=== PATIENT | female | born 1980 | race Native Hawaiian/Other Pacific Islander ===

== ENCOUNTER 2016-09-27 12:30 | Emergency (ER) | payer BC, MEDICAID ==
[2016-09-27] MEDS ORDERED: DEXAMETHASONE 10 MG/ML VIAL PO STA (15:48)
[2016-09-27] MEDS ORDERED: CHERRY SYRUP 10 ML UDC PO ONE (15:50)
[2016-09-27] MEDS ORDERED: DEXAMETHASONE 10 MG/ML VIAL ONE (15:51)
== END 2016-09-27 17:22 | disposition home or self-care (01) ==
DX: S29.012A Strain of muscle and tendon of back wall of thorax, initial encounter (principal); X50.9XXA Other and unspecified overexertion or strenuous movements or postures, initial encounter; Y99.0 Civilian activity done for income or pay; I10 Essential (primary) hypertension; K21.9 Gastro-esophageal reflux disease without esophagitis
CPT/HCPCS: 71020; 93005; 93010; 99283; 99284; A9270

== ENCOUNTER 2016-10-21 08:18 | Outpatient (CLI) | payer BC, MEDICAID | END 2016-10-21 08:19 | disposition home or self-care (01) | DX: I10 Essential (primary) hypertension (principal); Z13.220 Encounter for screening for lipoid disorders ==

== ENCOUNTER 2017-12-29 08:00 | Outpatient (CLI) | payer BC, MEDICAID ==
[2017-12-29 12:59] LABS: BASOPHILS % (AUTO) 0.8 %; EOSINOPHILS % (AUTO) 5.8 %; HGB - HEMOGLOBIN 7.6 g/dL (12.0-16.0); LYMPHOCYTES % (AUTO) 22.2 %; MEAN CORPUSCULAR HEMOGLOBIN 16.1 pg (27.0-31.0); MEAN CORPUSCULAR HGB CONC 29.2 g/dL (32.0-36.0); MEAN CORPUSCULAR VOLUME 55.1 fL (81.0-99.0); MEAN PLATELET VOLUME 8.5 fL (7.9-10.8); MONOCYTES % (AUTO) 7.3 %; NEUTROPHILS % (AUTO) 63.9 %; PLT - PLATELET COUNT 265 10^3/uL (130-450); RED BLOOD COUNT 4.71 10^6/uL (4.20-5.40); RED CELL DISTRIBUTION WIDTH 20.5 % (12.0-15.0); WHITE BLOOD COUNT 11.5 x10^3/uL (4.8-10.8)
[2017-12-29 13:17] LABS: ALBUMIN 3.8 g/dL (3.2-5.5); ALBUMIN/GLOBULIN RATIO 1.2 (1.0-2.2); ALKALINE PHOSPHATASE 52 IU/L (42-121); ALT ALANINE AMINOTRANSFERASE 16 IU/L (10-60); AST ASPARTATE AMINOTRANSFERASE 22 IU/L (10-42); BILIRUBIN,TOTAL 0.8 mg/dL (0.2-1.0); BUN - BLOOD UREA NITROGEN 14 mg/dL (6-20); CALCIUM 8.9 mg/dL (8.5-10.3); CARBON DIOXIDE - CO2 23 mmol/L (21-32); CHLORIDE 102 mmol/L (101-111); CHOLESTEROL 160 mg/dL; CREATININE 0.7 mg/dL (0.4-1.0); GFR - MDRD 94 (>89); GLUCOSE 78 mg/dL (70-100); HDL CHOLESTEROL 40 mg/dL; LDL CHOLESTEROL,CALCULATED 88 mg/dL; LDL/HDL RATIO 2.2 (<4.4); SODIUM 132 mmol/L (135-145); VLDL CHOLESTEROL 32 mg/dL
[2017-12-29 13:50] LABS: ABNORMAL LYMPHS % (MANUAL) 0 %; BAND NEUTROPHILS % (MANUAL) 0 %
[2017-12-29 13:55] LABS: BASOPHILS # (MANUAL) 0.1 10^3/uL (0-0.1); BASOPHILS % (MANUAL) 1 %; EOSINOPHILS # (MANUAL) 0.5 10^3/uL (0-0.7); LYMPHOCYTES # (MANUAL) 2.4 10^3/uL (1.5-3.5); LYMPHOCYTES % (MANUAL) 21 %; MONOCYTES # (MANUAL) 1.3 10^3/uL (0.0-1.0); NEUTROPHILS # (MANUAL) 7.2 10^3/uL (1.5-6.6); NEUTROPHILS % (MANUAL) 63 %
[2017-12-29 13:57] LABS: DIFFERENTIAL COMMENT MANUAL DIFFERENTIAL; PLATELET ESTIMATE, MANUAL NORMAL (130-450,000) (NORMAL); PLATELET MORPHOLOGY RARE GIANT PLATELETS (NORMAL)
== END 2017-12-29 08:01 | disposition home or self-care (01) ==
LOC: LAB.N 08:00
PROVIDERS: ATTEND Nurse Practitioner Family
DX: I10 Essential (primary) hypertension (principal); Z13.220 Encounter for screening for lipoid disorders
CPT/HCPCS: 36415; 80053; 80061; 83721; 84443; 85025

== ENCOUNTER 2018-03-29 07:40 | Outpatient (CLI) | payer MEDICAID ==
[2018-03-29 12:29] LABS: BASOPHILS % (AUTO) 0.9 %; EOSINOPHILS % (AUTO) 5.5 %; HGB - HEMOGLOBIN 8.9 g/dL (12.0-16.0); LYMPHOCYTES % (AUTO) 33.2 %; MEAN CORPUSCULAR HEMOGLOBIN 17.5 pg (27.0-31.0); MEAN CORPUSCULAR HGB CONC 30.3 g/dL (32.0-36.0); MEAN CORPUSCULAR VOLUME 57.9 fL (81.0-99.0); MEAN PLATELET VOLUME 8.8 fL (7.9-10.8); MONOCYTES % (AUTO) 6.6 %; NEUTROPHILS % (AUTO) 53.8 %; PLT - PLATELET COUNT 269 10^3/uL (130-450); RED BLOOD COUNT 5.09 10^6/uL (4.20-5.40); RED CELL DISTRIBUTION WIDTH 22.2 % (12.0-15.0); WHITE BLOOD COUNT 8.3 x10^3/uL (4.8-10.8)
[2018-03-29 12:41] LABS: % IRON SATURATION 5 % (20-50); IRON 20 ug/dL (28-170); TOTAL IRON BINDING CAPACITY 420 ug/dL (250-450); TRANSFERRIN 300 mg/dL (192-382)
[2018-03-29 13:14] LABS: ABNORMAL LYMPHS % (MANUAL) 0 %; BAND NEUTROPHILS % (MANUAL) 0 %
[2018-03-29 13:26] LABS: BASOPHILS # (MANUAL) 0.1 10^3/uL (0-0.1); BASOPHILS % (MANUAL) 1 %; EOSINOPHILS # (MANUAL) 0.5 10^3/uL (0-0.7); LYMPHOCYTES # (MANUAL) 1.7 10^3/uL (1.5-3.5); LYMPHOCYTES % (MANUAL) 21 %; MONOCYTES # (MANUAL) 0.5 10^3/uL (0.0-1.0); NEUTROPHILS # (MANUAL) 5.5 10^3/uL (1.5-6.6); NEUTROPHILS % (MANUAL) 66 %
[2018-03-29 13:29] LABS: DIFFERENTIAL COMMENT MANUAL DIFFERENTIAL; PLATELET ESTIMATE, MANUAL NORMAL (130-450,000) (NORMAL); PLATELET MORPHOLOGY NORMAL APPEARANCE (NORMAL)
== END 2018-03-29 07:41 | disposition home or self-care (01) ==
LOC: LAB.N 07:40
PROVIDERS: ATTEND Nurse Practitioner Family
DX: D64.9 Anemia, unspecified (principal)
CPT/HCPCS: 36415; 82728; 83540; 84466; 85025

== ENCOUNTER 2018-05-10 11:28 | Outpatient (CLI) | payer MEDICAID ==
[2018-05-10 18:54] LABS: BASOPHILS # (AUTO) 0.1 10^3/uL (0.0-0.1); BASOPHILS % (AUTO) 0.8 %; EOSINOPHILS # (AUTO) 0.4 10^3/uL (0.0-0.7); EOSINOPHILS % (AUTO) 5.2 %; HGB - HEMOGLOBIN 13.1 g/dL (12.0-16.0); LYMPHOCYTES % (AUTO) 27.4 %; MEAN CORPUSCULAR HEMOGLOBIN 22.9 pg (27.0-31.0); MEAN CORPUSCULAR HGB CONC 31.8 g/dL (32.0-36.0); MEAN CORPUSCULAR VOLUME 71.8 fL (81.0-99.0); MONOCYTES # (AUTO) 0.4 10^3/uL (0.0-1.0); MONOCYTES % (AUTO) 5.7 %; NEUTROPHILS # (AUTO) 4.5 10^3/uL (1.5-6.6); NEUTROPHILS % (AUTO) 60.9 %; PLT - PLATELET COUNT 346 10^3/uL (130-450); RED BLOOD COUNT 5.71 10^6/uL (4.20-5.40); RED CELL DISTRIBUTION WIDTH 29.6 % (12.0-15.0); WHITE BLOOD COUNT 7.3 x10^3/uL (4.8-10.8)
[2018-05-10 19:18] LABS: % IRON SATURATION 8 % (20-50); IRON 30 ug/dL (28-170); TOTAL IRON BINDING CAPACITY 360 ug/dL (250-450); TRANSFERRIN 257 mg/dL (192-382)
[2018-05-10 19:34] LABS: PLATELET ESTIMATE, MANUAL NORMAL (130-450,000) (NORMAL); PLATELET MORPHOLOGY NORMAL APPEARANCE (NORMAL)
== END 2018-05-10 11:29 | disposition home or self-care (01) ==
LOC: LAB.N 11:28
PROVIDERS: ATTEND Nurse Practitioner Family
DX: D64.9 Anemia, unspecified (principal)
CPT/HCPCS: 36415; 82728; 83540; 84466; 85025

== ENCOUNTER 2018-05-18 11:28 | Outpatient (CLI) | payer MEDICAID | END 2018-05-18 11:29 | disposition home or self-care (01) | LOC: LAB.N 11:28 | PROVIDERS: ATTEND Nurse Practitioner Family | DX: D64.9 Anemia, unspecified (principal) | CPT/HCPCS: 36415; 81599; 83021; 85014; 85018 ==

== ENCOUNTER 2018-07-18 09:20 | Emergency (ER) | payer MEDICAID ==
[2018-07-18 09:28] VITALS: BP 136/92
[2018-07-18 10:00] LABS: HCG UR QUAL NEGATIVE
--- NOTE | 2018-07-18 10:23 | ED Physician Documentation ---
PD HPI URI - Stated complaint Stated Complaint: SORE THROAT - Chief complaint Chief Complaint: Heent - History obtained from History obtained from: Patient - History of Present Illness Timing - onset: How many days ago Timing duration: Days (4) Pain level max: 6 Pain level now: 0 Associated symptoms: Nasal congestion, Sore throat, Dry cough. 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 No: Sick contact, Travel Improves by: Nothing Worsened by: Other (nothing) Similar symptoms before: Has not had sx before Recently seen: Not recently seen - Additional information Additional information: 38-year-old female with history of hypertension and cholecystectomy here with complaint of sore throat the past 4 days. Denies any fever. States has a little nasal congestion and dry cough.Denies any chest pain or shortness of breath. She did say that Her upper chest wall hurts a little when she coughs. 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 Denies any trauma or travel. Review of Systems Ten Systems: 10 systems reviewed and negative Constitutional: denies: Fever, Chills, Myalgias Nose: reports: Rhinorrhea / runny nose Throat: reports: Sore throat Cardiac: denies: Chest pain / pressure Respiratory: reports: Cough. denies: Dyspnea GI: denies: Vomiting, Diarrhea Skin: denies: Rash PD PAST MEDICAL HISTORY - Past Medical History Cardiovascular: Hypertension Endocrine/Autoimmune: None GI: GERD : None HEENT: None Psych: None Musculoskeletal: None Derm: None - Past Surgical History Past Surgical History: Yes General: Cholecystectomy Ortho: Other - Present Medications Home Medications: Ambulatory Orders Medication Instructions Recorded Confirmed amLODIPine [Norvasc] 5 mg PO ONCE 08/26/15 09/27/16 Metoprolol Tartrate 50 07/18/18 - Allergies Allergies/Adverse Reactions: Allergies Allergy/AdvReac Type Severity Reaction Status Date / Time No Known Drug Allergies Allergy Verified 07/18/18 09:28 - Social History Does the pt smoke?: No Smoking Status: Never smoker Does the pt drink ETOH?: No Does the pt have substance abuse?: No - Immunizations Immunizations are current?: Yes - POLST Patient has POLST: No PD ED PE NORMAL - Vitals Vital signs reviewed: Yes - General General: Alert and oriented X 3, No acute distress, Well developed/nourished - HEENT HEENT: Moist mucous membranes, Pharynx benign, Other (No erythema. No exudate. Tonsils are not enlarged. No retropharyngeal abscess.) - Neck Neck: Supple, no meningeal sign - Cardiac Cardiac: RRR, No murmur - Respiratory Respiratory: No respiratory distress, Clear bilaterally, Other (Mild tenderness to palpation of upper anterior chest wall.) - Abdomen Abdomen: Normal bowel sounds, Soft, Non tender, Non distended - Back Back: No CVA TTP - Derm Derm: Normal color, Warm and dry - Extremities Extremities: No deformity - Neuro Neuro: Alert and oriented X 3 - Psych Psych: Normal mood, Normal affect Results - Vitals Vitals: Vital Signs - 24 hr 07/18/18 09:25 Temperature 36.3 C L Heart Rate 86 Respiratory 18 Rate Blood Pressure 136/92 H O2 Saturation 99 Oxygen O2 Source Room air - Labs Labs: Laboratory Tests 07/18/18 07/18/18 09:30 09:51 Ur Specific [place] >=1.030 H Urine HCG, Qual NEGATIVE Group A Strep Rapid Negative PD MEDICAL DECISION MAKING - ED course Complexity details: considered differential (Upper respiratory infection, strep pharyngitis, viral pharyngitis,), d/w patient ED course: Patient inform of test results. Patient does not appear toxic and in no acute distress. She wants a work note to return tomorrow.Discuss treatment of pharyngitis including fever control and pain control with Tylenol or Motrin. Departure - Departure Disposition: 01 Home, Self Care Clinical Impression: Sore throat Condition: Good Instructions: ED Pharyngitis Viral Comments: Drink lots of fluids. You may take [id number] Tylenol or Motrin for pain and fever control. Follow-up with your primary doctor in a week. If worse retu rn to the emergency room. Forms: Activity restrictions
== END 2018-07-18 10:30 | disposition home or self-care (01) ==
LOC: ED 09:20
DX: J02.9 Acute pharyngitis, unspecified (principal); I10 Essential (primary) hypertension
CPT/HCPCS: 81025; 87070; 87430; 99283

== ENCOUNTER 2019-02-23 09:38 | Emergency (ER) | payer MEDICAID ==
[2019-02-23] MEDS ORDERED: MECLIZINE 12.5 MG TABLET PO STA (10:15)
[2019-02-23] MEDS ORDERED: METOCLOPRAMIDE 10 MG/2 ML VIAL IVP STA (10:15)
[2019-02-23 11:26] VITALS: BP 123/89
--- NOTE | 2019-02-23 12:23 | ED Physician Documentation ---
History of Present Illness - Stated complaint Stated Complaint: SHAKING/DIZZY - Chief complaint Chief Complaint: Neuro - History obtained from History obtained from: Patient - History of Present Illness Timing: Prior to arrival (while at work suddenly felt very dizzy, shaky, nauseous and had a mild headache. Friends were concerned because her BP was high and she has a hx of HTN.) Severity Comments: moderate Quality: feeling like she's on a boat Improved by: does not radiate, headache is frontal Worsened by: movement, dizziness is intermittent and worse when getting up or moving her head Associated symptoms: no difficulty walking. No speech problems, no weakness, no numbness, Reports nausea, no vomiting. - Treatment prior to arrival Treatment prior to arrival: she ate some food at work. Admits she is on the ketogenic diet and thought that might be the cause of her symptoms. Review of Systems Ten Systems: 10 systems reviewed and negative Constitutional: denies: Fever, Chills Eyes: denies: Loss of vision, Decreased vision, Photophobia Ears: reports: Reviewed and negative. denies: Ear pain, Tinnitus/ringing Nose: reports: Reviewed and negative Cardiac: denies: Chest pain / pressure, Palpitations Respiratory: denies: Dyspnea GI: reports: Nausea. denies: Abdominal Pain, Vomiting Neurologic: reports: Headache. denies: Generalized weakness, Focal weakness, Numbness, Difficulty speaking, Near syncope, Syncope, Seizure, Confused, Altered mental status, Head injury, LOC Endocrine: reports: Reviewed and negative Immunocompromised: reports: Reviewed and negative PD PAST MEDICAL HISTORY - Past Medical History Past Medical History: Yes Cardiovascular: Hypertension Endocrine/Autoimmune: None GI: GERD : None HEENT: None Psych: None Musculoskeletal: None Derm: None - Past Surgical History Past Surgical History: Yes General: Cholecystectomy Ortho: Other - Present Medications Home Medications: Ambulatory Orders Medication Instructions Recorded Confirmed amLODIPine [Norvasc] 5 mg PO ONCE 08/26/15 09/27/16 RX: Metoprolol Tartrate 50 07/18/18 RX: Meclizine [Antivert] 25 mg PO Q6H PRN #30 tablet 02/23/19 - Allergies Allergies/Adverse Reactions: Allergies Allergy/AdvReac Type Severity Reaction Status Date / Time No Known Drug Allergies Allergy Verified 07/18/18 09:28 - Social History Does the pt smoke?: No Smoking Status: Never smoker Does the pt drink ETOH?: No Does the pt have substance abuse?: No - Immunizations Immunizations are current?: Yes - POLST Patient has POLST: No PD ED PE NORMAL - Vitals Vital signs reviewed: Yes - General General: Alert and oriented X 3, No acute distress, Well developed/nourished - HEENT HEENT: Atraumatic, PERRL, EOMI, Moist mucous membranes, Pharynx benign, Other (no nystagmus, not horizontal or vertical ) - Neck Neck: Supple, no meningeal sign, No JVD - Cardiac Cardiac: RRR, No murmur, No gallop, No rub - Respiratory Respiratory: No respiratory distress, Clear bilaterally - Abdomen Abdomen: Soft, Non tender, Non distended - Female Female : Deferred - Rectal Rectal: Deferred - Derm Derm: Normal color, Warm and dry, No rash - Extremities Extremities: No deformity, No edema - Neuro Neuro: Alert and oriented X 3, levi maker 2-12 intact, No motor deficit, No sensory deficit, Normal speech Eye Opening: Spontaneous Motor: Obeys Commands Verbal: Oriented GCS Score: 15 - Psych Psych: Normal mood, Normal affect PD ED PE EXPANDED - Neuro Neuro: Alert and Oriented X 3, Normal motor, Normal Sensation, Normal Speech, CNII-XII intact, PERRL, Cerebellar nl, Normal gait, Normal finger nose, Normal speech. No: Confused, Disoriented, Lethargic, Dyscongugate gaze, Nystagmus Results - Vitals Vitals: Vital Signs - 24 hr 02/23/19 02/23/19 09:50 09:51 Temperature 36.4 C L Heart Rate 88 86 Respiratory 18 18 Rate Blood Pressure 158/104 H 123/89 H O2 Saturation 99 99 Oxygen O2 Source Room air - EKG (time done) 09:57 Rate: Rate (enter#) (69) Rhythm: NSR [place]: Normal Intervals: Normal VA QRS: Normal Ischemia: Normal ST segments Computer interpretation: Agree with computer PD MEDICAL DECISION MAKING - ED course Complexity details: reviewed results, re-evaluated patient, considered differential, d/w patient ED course: ddx- peripheral vertigo, central vertigo, BPPV, labyrinthitis 38 y/o F with hx and exam as documented. Symptoms c/w vertigo rather than lightheadedness. EKG is normal and not suggestive of cardiac arrhythmia or etiology. She does have intermittent dizziness with movement and head movements, her neuro exam is normal. Her symptoms improved with reglan, meclizine for headache and dizziness. Doubt central vertigo. Gien normal exam, gait and significant improvement. Pt is stable for discharge home w/ return precautions if worsening. Discussed option for the nohemi maneuver to the patient. Departure - Departure Disposition: 01 Home, Self Care Clinical Impression: Vertigo Condition: Stable Record reviewed to determine appropriate education?: Yes Instructions: ED Vertigo Unspecified Follow-Up: your, doctor [Other] - Within 1 week (to recheck your symptoms) Prescriptions: RX: Meclizine [Antivert] 25 mg PO Q6H PRN #30 tablet PRN Reason: Dizziness Comments: You likely have vertigo. Your EKG today was normal This is likely a peripheral form of vertigo called Benign Paroxysmal Positional Vertigo. It can be treated with meclizine or you can try a maneuver called the Nohemi Maneuver. Discharge Date/Time: 02/23/19 12:27
== END 2019-02-23 12:27 | disposition home or self-care (01) ==
LOC: ED 09:38
DX: R42 Dizziness and giddiness (principal); I10 Essential (primary) hypertension
CPT/HCPCS: 96374; 99283; 99284; A9270; J2765

== ENCOUNTER 2019-06-28 14:53 | Emergency (ER) | payer MEDICAID ==
[2019-06-28 15:01] VITALS: BP 125/80
[2019-06-28] MEDS ORDERED: CETIRIZINE 10 MG TABLET PO STA (15:26)
[2019-06-28] MEDS ORDERED: CHERRY SYRUP 10 ML UDC PO ONE (15:26)
[2019-06-28] MEDS ORDERED: DEXAMETHASONE 10 MG/ML VIAL PO STA (15:26)
--- NOTE | 2019-06-28 15:31 | ED Physician Documentation ---
PD HPI SKIN - Stated complaint Stated Complaint: LT ARM AND LEG RASH - Chief complaint Chief Complaint: Wound - History obtained from History obtained from: Patient - History of Present Illness Timing - onset: How many weeks ago (6) Timing - duration: Weeks (6 weeks of persistent itchy rash on left forearm/AC area that has not improved with OTC hydrocrotisone cream and ointment. has some itchy patches on right leg and also left forearm the past week as well. Her niece/nephew had some itchy rash as well and were Dx with scabies and are improving after treatment with permethrin. Patient thinking this could be her rash as well.) Timing - details: Gradual onset, Still present Location: LUE, RLE Quality / character: Itchy, Raised. No: Discolored, Swelling, Draining Review of Systems Constitutional: denies: Fever, Myalgias Nose: denies: Rhinorrhea / runny nose, Congestion Throat: denies: Sore throat Respiratory: denies: Cough GI: denies: Nausea, Vomiting, Diarrhea Neurologic: denies: Focal weakness, Numbness PD PAST MEDICAL HISTORY - Past Medical History Cardiovascular: Hypertension Endocrine/Autoimmune: None GI: GERD : None HEENT: None Psych: None Musculoskeletal: None Derm: None - Past Surgical History Past Surgical History: Yes General: Cholecystectomy Ortho: Other - Present Medications Home Medications: Ambulatory Orders Medication Instructions Recorded Confirmed amLODIPine [Norvasc] 5 mg PO ONCE 08/26/15 09/27/16 Metoprolol Tartrate 50 07/18/18 Meclizine [Antivert] 25 mg PO Q6H PRN #30 tablet 02/23/19 Betamethasone Valerate 1 applic TP BID #15 cream..g. 06/28/19 Permethrin 5% Cream 60 applic TOP ONCE #2 tube 06/28/19 - Allergies Allergies/Adverse Reactions: Allergies Allergy/AdvReac Type Severity Reaction Status Date / Time No Known Drug Allergies Allergy Verified 06/28/19 15:01 - Social History Does the pt smoke?: No Smoking Status: Never smoker Does the pt drink ETOH?: No Does the pt have substance abuse?: No - Immunizations Immunizations are current?: Yes - POLST Patient has POLST: No PD ED PE NORMAL - Vitals Vital signs reviewed: Yes - General General: Alert and oriented X 3, No acute distress, Well developed/nourished - Neck Neck: Supple, no meningeal sign, No adenopathy - Cardiac Cardiac: RRR, No murmur - Derm Derm: Normal color, Warm and dry, Other (left forearm with raised bumpy, nonerythematous patch of rash. There are also some areas of bumpy itchy spots without vesicles on forearm and some noted right posterolateral calf. ) - Neuro Neuro: Alert and oriented X 3, No motor deficit, No sensory deficit Results - Vitals Vitals: Vital Signs - 24 hr 06/28/19 14:56 Temperature 36.8 C Heart Rate 93 Respiratory 16 Rate Blood Pressure 125/80 O2 Saturation 98 Oxygen O2 Source Room air PD MEDICAL DECISION MAKING - ED course Complexity details: considered differential (location could be c/w eczema, but also itchy and new areas developing, and had exposure to scabies, so could be that as well/instead.), d/w patient Departure - Departure Disposition: 01 Home, Self Care Clinical Impression: Skin rash, Scabies exposure Condition: Stable Record reviewed to determine appropriate education?: Yes Instructions: ED Dermatitis Atopic Eczema, ED Scabies Prescriptions: Betamethasone Valerate 1 applic TP BID #15 cream..g. Permethrin 5% Cream 60 applic TOP ONCE #2 tube Comments: The rash and itchiness may be just an irritation of the skin called eczema. Continue some skin moisturizer. You can use a higher strength steroid prescription betamethasone twice daily to the itchy areas as well. This will be more effective than the [id number] hydrocortisone you have been using. Since you had been exposed to scabies, will also treat you for that in case the itchy spots you have are from scabies. Use it head to toe and repeated in a week. Discharge Date/Time: 06/28/19 15:42
== END 2019-06-28 15:42 | disposition home or self-care (01) ==
LOC: ED 14:53
DX: R21 Rash and other nonspecific skin eruption (principal); Z20.7 Contact with and (suspected) exposure to pediculosis, acariasis and other infestations; I10 Essential (primary) hypertension
CPT/HCPCS: 99282; 99284; A9270